=== PATIENT | male | born 1945 | race Caucasian/White ===

== ENCOUNTER 2016-06-30 18:59 | Emergency (ER) | payer MEDICAID ==
[~2016-06-30] VITALS: Ht 167.6 cm; Wt 59.1 kg
[2016-06-30 19:19] VITALS: BP 129/77; TEMP 98
[2016-06-30] MEDS ORDERED: [UNRECOGNIZED DRUG - OTHER] (19:49)
[2016-06-30] MEDS ORDERED: LASIX 20MG TABL20 MG PO (19:50)
[2016-06-30] MEDS ORDERED: PRILOSEC 20MG20 MG PO (19:50)
[2016-06-30] MEDS ORDERED: BUSPAR 30MG30 MG/TAB PO (19:51)
[2016-06-30] MEDS ORDERED: METHADONE H10 MG/TAB PO (19:51)
[2016-06-30] MEDS ORDERED: PERCOCET 325 MG1 TA2 PO (19:52)
[2016-06-30] MEDS ORDERED: COLACE 100100 MG/CAP PO (19:53)
[2016-06-30] MEDS ORDERED: PEPCID 20MG TAB20 MG PO (19:53)
[2016-06-30] MEDS ORDERED: ASPIRIN E.C. 8181 MG PO (19:54)
[2016-06-30] MEDS ORDERED: ATIVAN 0.50.5 MG/TAB PO (19:55)
[2016-06-30 21:21] VITALS: PULSE 94
== END 2016-06-30 21:23 | disposition home or self-care (01) ==
LOC: COL.ER 18:59
DX: M54.5 Low back pain (principal); G89.29 Other chronic pain; F17.210 Nicotine dependence, cigarettes, uncomplicated; F43.10 Post-traumatic stress disorder, unspecified
CPT/HCPCS: J2270; J3360

== ENCOUNTER → 2018-09-14 | Outpatient (CLI) | payer MEDICAID ==
[~2018-09-14] MED LIST: ASPIRIN E.C. 8181 MG PO; ATIVAN 0.50.5 MG/TAB PO; BUSPAR 30MG30 MG/TAB PO; COLACE 100100 MG/CAP PO; LASIX 20MG TABL20 MG PO; METHADONE H10 MG/TAB PO; PEPCID 20MG TAB20 MG PO; PERCOCET 325 MG1 TA2 PO; PRILOSEC 20MG20 MG PO; [UNRECOGNIZED DRUG - OTHER]
== END ==
LOC: MHCPAIN 14:32
DX: G89.29 Other chronic pain (principal); M47.817 Spondylosis without myelopathy or radiculopathy, lumbosacral region; M53.3 Sacrococcygeal disorders, not elsewhere classified
CPT/HCPCS: G0463